=== PATIENT | female | born 1975 | race Caucasian/White ===

== ENCOUNTER 2017-08-29 13:09 | Emergency (ER) | payer BC ==
[~2017-08-29] VITALS: Ht 170.2 cm; Wt 116.5 kg
[2017-08-29 13:12] VITALS: BP 120/79
== END 2017-08-29 14:30 | disposition home or self-care (01) ==
LOC: ED 13:37
DX: S20.212A Contusion of left front wall of thorax, initial encounter (principal); Z87.891 Personal history of nicotine dependence; X58.XXXA Exposure to other specified factors, initial encounter; Y93.72 Activity, wrestling; Y92.098 Other place in other non-institutional residence as the place of occurrence of the external cause; Y99.8 Other external cause status
CPT/HCPCS: 71020; 99284